=== PATIENT | female | born 1950 ===

== ENCOUNTER 2018-02-02 21:05 | Emergency (ER) | payer MEDICARE, OTHER ==
[2018-02-02 21:26] VITALS: BMI 36.2
[2018-02-02 21:28] VITALS: RESP 18
--- NOTE | 2018-02-02 22:52 | ED PDOC ---
HPI: General Adult Time Seen by Provider: 02/02/18 21:57 Chief Complaint (Nursing): Flu-like Symptoms Chief Complaint (Provider): Cough, feverish x 2 days History Per: Patient History/Exam Limitations: no limitations Onset/Duration Of Symptoms: Days Have you had recent travel within the past 21 days to any of the following countries: [place], [place], [place] or [place]?: No Current Symptoms Are (Timing): Still Present Additional Complaint(s): 67 yo female with HTN presents with cough and feeling feverish for 2 days. Pt states she has taken theraflu but it is not helping. Pt reports central chest pain, only when coughing. PT didn't take temperature at home. Pt reports taking 1 amoxicillin yesterday from her country. Past Medical History Reviewed: Historical Data, Nursing Documentation, Vital Signs Vital Signs: Last Vital Signs Temp 100.1 F H 02/02/18 21:26 Pulse 80 02/02/18 21:26 Resp 18 02/02/18 21:26 BP 163/84 H 02/02/18 21:26 Pulse Ox 97 02/02/18 23:24 - Medical History PMH: HTN Denies: Chronic Kidney Disease - Surgical History Surgical History: Hernia Repair (abdominal) - Family History Family History: States: Unknown Family Hx - Living Arrangements Living Arrangements: With Family - Social History Current smoker - smoking cessation education provided: No Alcohol: None Drugs: Denies - Home Medications Home Medications: Ambulatory Orders Medication Instructions Recorded Azithromycin [Zithromax] 250 mg PO DAILY #6 tab 02/02/18 - Allergies Allergies/Adverse Reactions: Allergies Allergy/AdvReac Type Severity Reaction Status Date / Time No Known Allergies Allergy Verified 02/02/18 21:26 Review of Systems ROS Statement: Except As Marked, All Systems Reviewed And Found Negative Constitutional: Positive for: Fever, Chills Respiratory: Positive for: Cough Physical Exam - Reviewed Nursing Documentation Reviewed: Yes Vital Signs Reviewed: Yes - Physical Exam Appears: Positive for: Well, Non-toxic, No Acute Distress Head Exam: Positive for: ATRAUMATIC, NORMAL INSPECTION, NORMOCEPHALIC Skin: Positive for: Normal Color, Warm, DRY Eye Exam: Positive for: Normal appearance ENT: Positive for: Normal ENT Inspection Neck: Positive for: Normal, Painless ROM Cardiovascular/Chest: Positive for: Regular Rate, Rhythm Respiratory: Positive for: Normal Breath Sounds. Negative for: Accessory Muscle Use, Respiratory Distress Back: Positive for: Normal Inspection Extremity: Positive for: Normal ROM Neurologic/Psych: Positive for: Alert, Oriented - Laboratory Results Result Diagrams: 02/02/18 23:09 02/02/18 23:09 - ECG O2 Sat by Pulse Oximetry: 97 Medical Decision Making Medical Decision Making: Labs normal. Disposition - Clinical Impression Clinical Impression: Bronchitis - Patient ED Disposition Is Patient to be Admitted: No Counseled Patient/Family Regarding: Diagnosis, Need For Followup, Rx Given - Disposition Disposition: Routine/Home Disposition Time: 23:52 Condition: STABLE Prescriptions: Azithromycin [Zithromax] 250 mg PO DAILY #6 tab Instructions: Acute Bronchitis Forms: [facility] (Uzbek)
[2018-02-02 23:14] LABS: BASO % 0.7 % (0.0-2.0); EOS # 0.1 K/uL (0.0-0.7); EOS % 3.2 % (0.0-4.0); HEMOGLOBIN 12.6 g/dL (12.0-16.0); LYMPH % 27.3 % (20.0-40.0); MEAN CELL VOLUME 88.4 fl (81.0-99.0); MEAN CORPUSCULAR HEMOGLOBIN 29.7 pg (27.0-31.0); MEAN CORPUSCULAR HGB CONC 33.6 g/dL (33.0-37.0); MEAN PLATELET VOLUME 8.9 fl (7.2-11.7); MONO # 0.5 K/uL (0.0-0.8); MONO % 14.5 % (0.0-10.0); NEUT % 54.3 % (50.0-75.0); NRBC % 0.1 % (0.0-0.0); RBC 4.24 Mil/uL (3.80-5.20); RED CELL DISTRIBUTION WIDTH 13.4 % (11.5-14.5); WHITE BLOOD COUNT 3.6 K/uL (4.8-10.8)
[2018-02-02 23:27] LABS: ALB/GLOB RATIO 1.1 (1.0-2.1); ALBUMIN 4.1 g/dL (3.5-5.0); ALT/SGPT 183 U/L (9-52); AST/SGOT 201 U/L (14-36); BLOOD UREA NITROGEN 16 mg/dl (7-17); CALCIUM 9.1 mg/dL (8.4-10.2); GFR AFRICAN-AMERICAN > 60; GFR NON-AFRICAN AMERICAN > 60; URINE BACTERIA RARE (<OCC); URINE BILIRUBIN NEGATIVE (NEGATIVE); URINE BLOOD MODERATE (NEGATIVE); URINE CLARITY CLEAR (Clear); URINE COLOR YELLOW (YELLOW); URINE GLUCOSE (UA) NEG (Normal); URINE LEUKOCYTE ESTERASE MOD Leu/uL (Negative); URINE PROTEIN NEGATIVE (NEGATIVE); URINE UROBILINOGEN 0.2-1.0 mg/dL (0.2-1.0)
[2018-02-03 00:06] VITALS: BP 142/73; PULSE 78; TEMP 99.7; O2SAT 100
--- NOTE | 2018-02-03 09:49 | RAD ---
HISTORY: pneumonia COMPARISON: Chest radiograph dated 05/28/2015. TECHNIQUE: Chest PA and lateral FINDINGS: LUNGS: No active pulmonary disease. PLEURA: No significant pleural effusion identified. No pneumothorax apparent. CARDIOVASCULAR: Atherosclerotic aortic calcifications. Cardiomediastinal silhouette within normal limits. OSSEOUS STRUCTURES: Unchanged. VISUALIZED UPPER ABDOMEN: Normal. OTHER FINDINGS: None. IMPRESSION: No active disease.
--- NOTE | 2018-02-03 10:18 | CARD ---
APPROVED REPORT EKG Measurement Heart [id number] <Conclusion> Normal sinus rhythm Right bundle branch block Abnormal ECG
== END 2018-02-03 00:08 | disposition home or self-care (01) ==
LOC: H.ER 21:05
DX: J40 Bronchitis, not specified as acute or chronic (principal); I10 Essential (primary) hypertension

== ENCOUNTER 2018-06-14 11:56 | Emergency (ER) | payer MEDICARE, OTHER ==
[2018-06-14 11:56] VITALS: BMI 36.2
[2018-06-14 12:01] VITALS: TEMP 98.2; O2SAT 97
--- NOTE | 2018-06-14 13:30 | RAD ---
Date of service: 06/14/2018 HISTORY: cough COMPARISON: Chest radiographs 02/02/2018. TECHNIQUE: Chest PA and lateral FINDINGS: LUNGS: No active pulmonary disease. PLEURA: No significant pleural effusion identified. No pneumothorax apparent. CARDIOVASCULAR: Normal. OSSEOUS STRUCTURES: No significant abnormalities. VISUALIZED UPPER ABDOMEN: Elevated right hemidiaphragm reiterated. OTHER FINDINGS: None. IMPRESSION: No interval acute cardiopulmonary disease appreciated.
--- NOTE | 2018-06-14 14:24 | ED PDOC ---
HPI: Abdomen Time Seen by Provider: 06/14/18 12:44 Chief Complaint (Nursing): Abdominal Pain Chief Complaint (Provider): Abdominal Pain History Per: Patient History/Exam Limitations: no limitations Onset/Duration Of Symptoms: Days Current Symptoms Are (Timing): Still Present Location Of Pain/Discomfort: Suprapubic Additional Complaint(s): 68 y/o female with no significant PMHx presents to the ED for evaluation of abdominal pain and back pain, onset earlier today. Patient also complains of dysuria and dry cough, onset 4 days ago. Otherwise, patient denies fever, chest pain and shortness of breath. PMD: Dr. Patel Past Medical History Reviewed: Historical Data, Nursing Documentation, Vital Signs Vital Signs: Last Vital Signs Temp 98.2 F 06/14/18 12:00 Pulse 66 06/14/18 12:00 Resp 20 06/14/18 12:00 BP 165/84 H 06/14/18 12:00 Pulse Ox 97 06/14/18 12:00 - Medical History PMH: HTN Denies: Chronic Kidney Disease - Surgical History Surgical History: Hernia Repair (abdominal) - Family History Family History: States: Unknown Family Hx - Home Medications Home Medications: Ambulatory Orders Medication Instructions Recorded levoFLOXacin [Levaquin] 500 mg PO DAILY #7 tab 02/02/18 Ciprofloxacin HCl [Cipro] 500 mg PO BID #14 tablet 06/14/18 - Allergies Allergies/Adverse Reactions: Allergies Allergy/AdvReac Type Severity Reaction Status Date / Time No Known Allergies Allergy Verified 06/14/18 11:59 Review of Systems ROS Statement: Except As Marked, All Systems Reviewed And Found Negative Constitutional: Negative for: Fever Cardiovascular: Negative for: Chest Pain Respiratory: Positive for: Cough (dry). Negative for: Shortness of Breath Gastrointestinal: Positive for: Abdominal Pain (suprapubic) Genitourinary Female: Positive for: Dysuria Musculoskeletal: Positive for: Back Pain Physical Exam - Reviewed Nursing Documentation Reviewed: Yes Vital Signs Reviewed: Yes - Physical Exam Appears: Positive for: No Acute Distress Head Exam: Positive for: ATRAUMATIC Skin: Positive for: Normal Color, Warm, Dry Eye Exam: Positive for: Normal appearance, EOMI, PERRL Neck: Positive for: Normal, Painless ROM Cardiovascular/Chest: Positive for: Regular Rate, Rhythm. Negative for: Murmur Respiratory: Positive for: Normal Breath Sounds. Negative for: Respiratory Distress Gastrointestinal/Abdominal: Positive for: Normal Exam, Soft, Tenderness (mild suprapubic ) Back: Positive for: Normal Inspection. Negative for: L CVA Tenderness, R CVA Tenderness, Vertebral Tenderness Extremity: Positive for: Normal ROM. Negative for: Pedal Edema, Deformity Neurologic/Psych: Positive for: Alert, Oriented. Negative for: Motor/Sensory Deficits - ECG O2 Sat by Pulse Oximetry: 97 (RA) Pulse Ox Interpretation: Normal Medical Decision Making Medical Decision Making: Time: 1324 Impression: Dysuria, abdominal pain, back pain and dry cough Differentials include but not limited to UTI, Kidney stones and bronchitis Rule Out pneumonia Plan: -- CT Abd/Pelvis w/o PO or IV Contrast -- ED Urine Dipstick -- CXR Two Views -- UDip showed hematuria and leuks. 1327 CXR FINDINGS: LUNGS: No active pulmonary disease. PLEURA: No significant pleural effusion identified. No pneumothorax apparent. CARDIOVASCULAR: Normal. OSSEOUS STRUCTURES: No significant abnormalities. VISUALIZED UPPER ABDOMEN: Elevated right hemidiaphragm reiterated. OTHER FINDINGS: None. IMPRESSION: No interval acute cardiopulmonary disease appreciated. 1453 CT ABDOMEN AND PELVIS FINDINGS: LOWER THORAX: The visualized lungs are clear. LIVER: Normal in size. Stable exophytic calcified cyst in the right hepatic lobe adjacent to the gallbladder fossa. No intrahepatic ductal dilatation. GALLBLADDER AND BILE DUCTS: No calcified gallstones. No biliary dilatation PANCREAS: Normal in size. No ductal dilatation. SPLEEN: Normal in size. ADRENALS: Normal in size. No discrete nodule. KIDNEYS AND URETERS: Normal in size without nephrolithiasis. Mild fullness in bilateral renal collecting systems.. VASCULATURE: No aortic aneurysm. BOWEL: The small bowel loops are normal in caliber. There is moderate amount of stool in the colon. No bowel dilatation or wall thickening. No bowel obstruction. There is left colonic diverticulosis without CT evidence for acute diverticulitis APPENDIX: Normal appendix. PERITONEUM: No free fluid. No free air. LYMPH NODES: No enlarged lymph nodes. BLADDER: Well distended and grossly normal in appearance. REPRODUCTIVE: The uterus is normal in size. There is a stable 4.2 x 4.9 cm cystic mass in the right adnexa. BONES: No acute fracture. OTHER FINDINGS: There is a small supraumbilical ventral hernia containing nonobstructed small bowel loops. IMPRESSION: No acute abdominal or pelvic abnormality. Left colonic diverticulosis without CT evidence for acute diverticulitis. Little interval change in 4.2 x 4.9 cm in the right adnexa. Supraumbilical ventral hernia containing nonobstructed small bowel lobes. Scribe Attestation: Documented by Osito Quintana, acting as a scribe for Petra Ponce MD. Provider Scribe Attestation: All medical record entries made by the Scribe were at my direction and personally dictated by me. I have reviewed the chart and agree that the record accurately reflects my personal performance of the history, physical exam, medical decision making, and the department course for this patient. I have also personally directed, reviewed, and agree with the discharge instructions and disposition. Disposition - Clinical Impression Clinical Impression: UTI (urinary tract infection), Ventral hernia - Disposition Referrals: [facility] [Outside] Condition: GOOD Additional Instructions: ANNA AVILES, thank you for letting us take care of you today. Your provider was Petra Ponce MD and you were treated for BACK PAIN. The emergency medical care you received today was directed at your acute symptoms. If you were prescribed any medication, please fill it and take as directed. It may take several days for your symptoms to resolve. Return to the Emergency Department if your symptoms worsen, do not improve, or if you have any other problems. Please contact your doctor or call one of the physicians/clinics you have been referred to that are listed on the Patient Visit Information form that is included in your discharge packet. Bring any paperwork you were given at discharge with you along with any medications you are taking to your follow up visit. Our treatment cannot replace ongoing medical care by a primary care provider outside of the emergency department. Thank you for allowing the [facility] team to be part of your care today. If you had an X-Ray or CT scan: A Radiologist will review the ED reading if any change in treatment is needed we will contact you. If you had a blood, urine, or wound culture: It will take several days for the results, if any change in treatment is needed we will contact you. If you had an STI test: It will take 48 hours for the results. Please call after 1 week if you have not heard back. Prescriptions: Ciprofloxacin HCl [Cipro] 500 mg PO BID #14 tablet Instructions: Urinary Tract Infection, Adult (DC), Abdominal Hernia (DC) Print Language: CHINESE
--- NOTE | 2018-06-14 14:57 | CT ---
Date of service: 06/14/2018 PROCEDURE: CT Abdomen and Pelvis without intravenous contrast HISTORY: back pain hematuria COMPARISON: 08/11/2016. TECHNIQUE: CT scan of the abdomen and pelvis was performed without administration of intravenous contrast. Oral contrast was not administered. Coronal and sagittal reformatted images were obtained. . Radiation dose: Total exam DLP = 816.90 mGy-cm. This CT exam was performed using one or more of the following dose reduction techniques: Automated exposure control, adjustment of the mA and/or kV according to patient size, and/or use of iterative reconstruction technique. FINDINGS: LOWER THORAX: The visualized lungs are clear. LIVER: Normal in size. Stable exophytic calcified cyst in the right hepatic lobe adjacent to the gallbladder fossa. No intrahepatic ductal dilatation. GALLBLADDER AND BILE DUCTS: No calcified gallstones. No biliary dilatation PANCREAS: Normal in size. No ductal dilatation. SPLEEN: Normal in size. ADRENALS: Normal in size. No discrete nodule. KIDNEYS AND URETERS: Normal in size without nephrolithiasis. Mild fullness in bilateral renal collecting systems.. VASCULATURE: No aortic aneurysm. BOWEL: The small bowel loops are normal in caliber. There is moderate amount of stool in the colon. No bowel dilatation or wall thickening. No bowel obstruction. There is left colonic diverticulosis without CT evidence for acute diverticulitis APPENDIX: Normal appendix. PERITONEUM: No free fluid. No free air. LYMPH NODES: No enlarged lymph nodes. BLADDER: Well distended and grossly normal in appearance. REPRODUCTIVE: The uterus is normal in size. There is a stable 4.2 x 4.9 cm cystic mass in the right adnexa. BONES: No acute fracture. OTHER FINDINGS: There is a small supraumbilical ventral hernia containing nonobstructed small bowel loops. IMPRESSION: No acute abdominal or pelvic abnormality. Left colonic diverticulosis without CT evidence for acute diverticulitis. Little interval change in 4.2 x 4.9 cm in the right adnexa. Supraumbilical ventral hernia containing nonobstructed small bowel lobes.
[2018-06-14 16:00] VITALS: BP 141/91; PULSE 68; RESP 18
== END 2018-06-14 15:35 | disposition home or self-care (01) ==
LOC: H.ER 11:56
DX: N39.0 Urinary tract infection, site not specified (principal); K43.9 Ventral hernia without obstruction or gangrene; I10 Essential (primary) hypertension

== ENCOUNTER 2018-12-25 20:10 | Observation (INO) | payer MEDICARE, OTHER ==
--- NOTE | 2018-12-25 22:51 | ED PDOC ---
HPI: Abdomen Time Seen by Provider: 12/25/18 22:19 Chief Complaint (Nursing): Abdominal Pain Chief Complaint (Provider): Abdominal Pain History Per: Patient History/Exam Limitations: no limitations Onset/Duration Of Symptoms: Days Current Symptoms Are (Timing): Still Present Additional Complaint(s): 68 y/o female with a PMHx of a hysterectomy, abdominal hernia repair, HTN and recurrent intestinal obstructions presents to the ED for evaluation of abdominal pain since earlier today associated with three episodes of non-bloody, non-bilious vomiting this evening. Otherwise, patient denies diarrhea, fever, cough, shortness of breath and chest pain. PMD: William Fuentes Past Medical History Reviewed: Historical Data, Nursing Documentation, Vital Signs Vital Signs: Last Vital Signs Temp 98.3 F 12/25/18 20:43 Pulse 85 12/25/18 20:43 Resp 16 12/25/18 20:43 BP 178/101 H 12/25/18 20:43 Pulse Ox 100 12/25/18 20:43 - Medical History PMH: HTN Denies: Chronic Kidney Disease Other PMH: recurrent intestinal obstructions - Surgical History Surgical History: Hernia Repair (abdominal) Other surgeries: hysterectomy - Family History Family History: States: Unknown Family Hx - Social History Current smoker - smoking cessation education provided: No Alcohol: None Drugs: Denies - Home Medications Home Medications: Ambulatory Orders Medication Instructions Recorded levoFLOXacin [Levaquin] 500 mg PO DAILY #7 tab 02/02/18 Ciprofloxacin HCl [Cipro] 500 mg PO BID #14 tablet 06/14/18 - Allergies Allergies/Adverse Reactions: Allergies Allergy/AdvReac Type Severity Reaction Status Date / Time No Known Allergies Allergy Verified 12/25/18 20:42 Review of Systems ROS Statement: Except As Marked, All Systems Reviewed And Found Negative Constitutional: Negative for: Fever Cardiovascular: Negative for: Chest Pain Respiratory: Negative for: Cough, Shortness of Breath Gastrointestinal: Positive for: Vomiting, Abdominal Pain. Negative for: Diar linda Physical Exam - Reviewed Nursing Documentation Reviewed: Yes Vital Signs Reviewed: Yes - Physical Exam Appears: Positive for: No Acute Distress Head Exam: Positive for: ATRAUMATIC, NORMOCEPHALIC Skin: Positive for: Normal Color, Warm, Dry Eye Exam: Positive for: Normal appearance, EOMI, PERRL Neck: Positive for: Normal, Painless ROM, Supple Cardiovascular/Chest: Positive for: Regular Rate, Rhythm. Negative for: Murmur Respiratory: Positive for: Normal Breath Sounds. Negative for: Respiratory Distress Gastrointestinal/Abdominal: Positive for: Tenderness (diffuse). Negative for: Mass, Guarding, Rebound Extremity: Positive for: Normal ROM. Negative for: Deformity Neurological/Psych: Positive for: Awake, Alert, Oriented (x3). Negative for: Motor/Sensory Deficits - Laboratory Results Result Diagrams: 12/25/18 23:38 12/25/18 23:38 - ECG O2 Sat by Pulse Oximetry: 100 (RA) Pulse Ox Interpretation: Normal Medical Decision Making Medical Decision Making: Time: 22:43 Impression: 68 y/o male presenting with abdominal pain and vomiting, in setting of recurrent small bowl obstructions Plan: -- CT Abd/Pelvis IV Contrast ONLY -- EKG -- CMP -- Lact Acid, Plasma -- Lipase -- ED Urine Dipstick -- CBC with Differentials -- Pepcid 20 mg IV -- Zofran Inj 4 mg IV -- Heplock Insertion -- Urinalysis 1:21 CT Abdomen and pelvis with IV contrast only read and reviewed by radiologist COMMENTS: Bilateral basilar subsegmental atelectatic pulmonary changes. 1.4 cm benign chronic peripheral uncomplicated cyst in the segment 4B of the liver with mural calcifications. Small sliding hiatal hernia. Perimbilical non incarcerated anterior abdominal wall hernia. Moderate partial small bowel obstruction. Transition zone in the right lower quadrant. No evidence of bowel perforation or pneumatosis intestinalis. Prior hysterectomy. 4.1 cm right ovarian/adnexal cyst. The liver is of uniform attenuation without mass or defect. There is no intra or extrahepatic biliary ductal dilatation. The spleen is normal. The gallbladder is within normal limits. The pancreas is of normal contour and attenuation characteristics. There is no evidence of adrenal mass. Both kidneys demonstrate prompt and equal nephrograms. The kidneys are normal in size, shape and configuration. There is no evidence of renal or ureteral mass. No renal or ureteral calculi are identified. There is no hydroureter or hydronephrosis. No evidence for appendicitis. There is no evidence of abdominal ascites or lymphadenopathy. There is no evidence of intrinsic or extrinsic bladder mass. There is no pelvic ascites or lymphadenopathy. Images of the lung bases show no evidence of pleural or parenchymal mass. There are no pleural effusions. The bony structures are free of lytic or blastic lesions. IMPRESSION: Bilateral basilar subsegmental atelectatic pulmonary changes. 1.4 cm benign chronic peripheral uncomplicated cyst in the segment 4B of the liver with mural calcifications. Small sliding hiatal hernia. Perimbilical non incarcerated anterior abdominal wall hernia. Moderate partial small bowel obstruction. Transition zone in the right lower quadrant. No evidence of bowel perforation or pneumatosis intestinalis. Prior hysterectomy. 4.1 cm right ovarian/adnexal cyst. 2:00 Case discussed with William Fuentes MD (patient's PMD). Patient to be admitted for small bowel obstruction. requesting Jaya Herrera MD as surgical consult. Spoke with plant operations vice president . Discussed case with Dr.J Herrera. 2:30 Callback from requesting patient be admitted under medical service as he is away and will not be back.' Case referred to Manpreet Martínez (BONDING MACHINE TENDER for ) Scribe Attestation: Documented by Osito Quintana, acting as a scribe Cristine Chowdhury MD. Provider Scribe Attestation: All medical record entries made by the Scribe were at my direction and personally dictated by me. I have reviewed the chart and agree that the record accurately reflects my personal performance of the history, physical exam, medical decision making, and the department course for this patient. I have also personally directed, reviewed, and agree with the discharge instructions and disposition. Documented by Christine Courtney, acting as a scribe Cristine Chowdhury MD. Provider Scribe Attestation: All medical record entries made by the Scribe were at my direction and personally dictated by me. I have reviewed the chart and agree that the record accurately reflects my personal performance of the history, physical exam, medical decision making, and the department course for this patient. I have also personally directed, reviewed, and agree with the discharge instructions and disposition. Disposition - Clinical Impression Clinical Impression: Small bowel obstruction - Disposition Disposition Time: 02:00 Condition: FAIR - Pt Status Changed To: Hospital Disposition Of: Inpatient - Admit Certification Admit to Inpatient:: After my assessment, the patient will require hospitalization for at least two midnights. This is because of the severity of symptoms shown, intensity of services needed, and/or the medical risk in this patient being treated as an outpatient.
[2018-12-25 23:46] LABS: BASO % 0.5 % (0.0-2.0); EOS # 0.1 K/uL (0.0-0.7); HEMOGLOBIN 14.1 g/dL (12.0-16.0); LYMPH # 1.9 K/uL (1.0-4.3); LYMPH % 31.1 % (20.0-40.0); MEAN CELL VOLUME 90.1 fl (81.0-99.0); MEAN CORPUSCULAR HEMOGLOBIN 30.1 pg (27.0-31.0); MEAN CORPUSCULAR HGB CONC 33.4 g/dL (33.0-37.0); MEAN PLATELET VOLUME 9.3 fl (7.2-11.7); MONO # 0.4 K/uL (0.0-0.8); MONO % 6.2 % (0.0-10.0); NEUT # 3.8 K/uL (1.8-7.0); NEUT % 60.2 % (50.0-75.0); RBC 4.67 Mil/uL (3.80-5.20); RED CELL DISTRIBUTION WIDTH 14.6 % (11.5-14.5); WHITE BLOOD COUNT 6.3 K/uL (4.8-10.8)
[2018-12-25 23:55] LABS: ALB/GLOB RATIO 1.2 (1.0-2.1); ALBUMIN 4.7 g/dL (3.5-5.0); ALT/SGPT 74 U/L (9-52); AST/SGOT 48 U/L (14-36); BLOOD UREA NITROGEN 17 mg/dl (7-17); CALCIUM 9.6 mg/dL (8.4-10.2); GFR NON-AFRICAN AMERICAN > 60; LIPASE 101 U/L (23-300)
[2018-12-26] MEDS ORDERED: Iohexol 300 100 ML IJ ONE (00:35)
[2018-12-26] MEDS ORDERED: Sodium Chloride 0.9% 50 ML IV ONE (00:36)
[2018-12-26 04:48] VITALS: BMI 35.4
--- NOTE | 2018-12-26 06:12 | CP.PCM.CON ---
<Nico Posada - Last Filed: 12/26/18 06:17> History of Present Illness - History of Present Illness History of Present Illness: Surgery: Dr. Herrera Reason for consult: SBO HPI: Patient is a 68 y/o female who presented today complaining of abdominal discomfort, nausea, and 5 episodes of nonbloody bilious vomiting that started about 12 hour prior to arrival. She describes the discomfort as a cramping sensation mainly located in the epigastrium. She states that her last BM and flatus was early Tuesday morning and reported as normal. Since then she denies having flatus or BM. She report having similar symptoms in the past in which she was told she had an obstruction from her prior operations. She said the symptoms usually resolve in 2-3 days without an NGT. She denies sick contact or recent travel. Her last colonoscopy was 2 years ago and reported as normal. PMH: HTN, SBO PSH: open hysterectomy, incisional hernia repair 7+ years ago Social: denies etoh, tobacco or drug use. Review of Systems - Constitutional Constitutional: absent: Anorexia, Chills, Fever - EENT Eyes: absent: Blurred Vision, Change in Vision Ears: absent: Disequilibrium, Dizziness Nose/Mouth/Throat: absent: Sore Throat, Neck Pain - Cardiovascular Cardiovascular: absent: Chest Pain, Dyspnea - Respiratory Respiratory: absent: Cough, Wheezing - Gastrointestinal Gastrointestinal: Abdominal Pain, Nausea, Vomiting. absent: Constipation, Cramping, Diarrhea - Genitourinary Genitourinary: absent: Hematuria, Pyuria - Musculoskeletal Musculoskeletal: absent: Tingling - Integumentary Integumentary: absent: Jaundice - Neurological Neurological: absent: Dizziness - Psychiatric Psychiatric: absent: Confusion, Depression Past Patient History - Infectious Disease Hx of Infectious Diseases: None - Past Medical History & Family History Past Medical History?: Yes - Past Social History Smoking Status: Never Smoked - CARDIAC Hx Cardiac Disorders: Yes Hx Hypercholesterolemia: No Hx Hypertension: Yes - PULMONARY Hx Respiratory Disorders: No - NEUROLOGICAL Hx Neurological Disorder: No - HEENT Hx HEENT Problems: Yes Other/Comment: use eyeglasses - RENAL Hx Chronic Kidney Disease: No - ENDOCRINE/METABOLIC Hx Endocrine Disorders: No Hx Diabetes Mellitus Type 2: No - HEMATOLOGICAL/ONCOLOGICAL Hx Blood Disorders: No Hx AIDS: No Hx Human Immunodeficiency Virus (HIV): No - INTEGUMENTARY Hx Dermatological Problems: No - MUSCULOSKELETAL/RHEUMATOLOGICAL Hx Musculoskeletal Disorders: No Hx Falls: No - GASTROINTESTINAL Hx Gastrointestinal Disorders: Yes Other/Comment: Intestinal obstruction/SBO 3 yrs ago - GENITOURINARY/GYNECOLOGICAL Hx Genitourinary Disorders: No - PSYCHIATRIC Hx Psychophysiologic Disorder: No Hx Substance Use: No (denies hx) - SURGICAL HISTORY Hx Surgeries: Yes Hx Hysterectomy: Yes (11 years ago) Other/Comment: Incisional hernia repair 6 yrs ago, Total abdominal hysterectomy and b/l salphingo-oophorectomy 11 yrs ago - ANESTHESIA Hx Anesthesia: Yes Hx Anesthesia Reactions: No Hx Malignant Hyperthermia: No Meds Allergies/Adverse Reactions: Allergies Allergy/AdvReac Type Severity Reaction Status Date / Time No Known Allergies Allergy Verified 12/25/18 20:42 Physical Exam - Constitutional Appears: Non-toxic, No Acute Distress - Head Exam Head Exam: ATRAUMATIC, NORMOCEPHALIC - Eye Exam Eye Exam: Normal appearance - ENT Exam ENT Exam: Mucous Membranes Moist - Respiratory Exam Respiratory Exam: NORMAL BREATHING PATTERN. absent: Respiratory Distress - Cardiovascular Exam Cardiovascular Exam: REGULAR RHYTHM. absent: Tachycardia - GI/Abdominal Exam GI & Abdominal Exam: Soft. absent: Distended, Guarding, Rebound, Rigid, Tenderness Additional comments: well healed infraumbilical midline vertical scar - Extremities Exam Extremities exam: Positive for: normal inspection. Negative for: calf tenderness - Neurological Exam Neurological exam: Alert, Oriented x3 - Psychiatric Exam Psychiatric exam: Normal Affect, Normal Mood - Skin Skin Exam: Dry, Normal Color, Warm Results - Vital Signs Recent Vital Signs: Last Vital Signs Temp 97.7 F 12/26/18 03:36 Pulse 56 L 12/26/18 03:36 Resp 18 12/26/18 03:36 BP 149/85 12/26/18 03:36 Pulse Ox 95 12/26/18 03:36 - Labs Result Diagrams: 12/25/18 23:38 12/25/18 23:38 Labs: Laboratory Results - last 24 hr 12/25/18 12/25/18 12/25/18 23:32 23:38 23:38 WBC 6.3 D RBC 4.67 Hgb 14.1 Hct 42.1 MCV 90.1 MCH 30.1 MCHC 33.4 RDW 14.6 H Plt Count 309 MPV 9.3 Neut % (Auto) 60.2 Lymph % (Auto) 31.1 [place] % (Auto) 6.2 Eos % (Auto) 2.0 Baso % (Auto) 0.5 Neut # (Auto) 3.8 Lymph # (Auto) 1.9 [place] # (Auto) 0.4 Eos # (Auto) 0.1 Baso # (Auto) 0.0 Sodium 139 Potassium 3.9 Chloride 100 Carbon Dioxide 28 Anion Gap 15 BUN 17 Creatinine 0.8 Est GFR ( Amer) > 60 Est GFR (Non-Af Amer) > 60 Random Glucose 115 H Lactic Acid 1.3 Calcium 9.6 Total Bilirubin 0.7 AST 48 H D ALT 74 H D Alkaline Phosphatase 173 H Total Protein 8.6 H Albumin 4.7 Globulin 3.9 Albumin/Globulin Ratio 1.2 Lipase 101 - Impressions Impression: CT with transition point in RLQ, fat containing recurrent umbilical hernia Assessment & Plan - Assessment and Plan (Free Text) Assessment: 68 y/o female w/ mechanical SBO Plan: -refused NGT, said she normally resolves without it -NPO -IVFs -zofran -maintain normal electrolyte levels -encourage ambulation -if failure to resolved may need surgical intervention -discussed with atteding Swapna PGY4 - Date & Time Date: 12/26/18 Time: 03:00 <Efrain Murguia - Last Filed: 12/26/18 17:27> History of Present Illness - History of Present Illness History of Present Illness: Patient was seen and examined at the bedside. Agree with resident's note above. Patient states that feels much better and passing flatus today, no more nausea or vomiting. Meds - Medications Medications: Current Medications Famotidine (Pepcid) 20 mg IVP DAILY [facility] Last Admin: 12/26/18 10:49 Dose: 20 mg Hydromorphone HCl (Dilaudid) 0.5 mg IVP Q4 PRN PRN Reason: Pain, moderate (4-7) Stop: 12/28/18 06:23 Lactated Ringer's (Lactated Ringer's) 1,000 mls @ 100 mls/hr IV .Q10H [facility] Last Admin: 12/26/18 17:11 Dose: 100 mls/hr Ondansetron HCl (Zofran Inj) 4 mg IVP Q4 PRN PRN Reason: Nausea/Vomiting Physical Exam - GI/Abdominal Exam Additional comments: soft, NT, ND, BS+, no rebound, no guarding, well healed scars from prior surgeries Results - Vital Signs Recent Vital Signs: Last Vital Signs Temp 97.5 F L 12/26/18 16:09 Pulse 48 L 12/26/18 16:09 Resp 18 12/26/18 16:09 BP 132/68 12/26/18 16:09 Pulse Ox 97 12/26/18 16:09 - Labs Result Diagrams: 12/25/18 23:38 12/25/18 23:38 Labs: Laboratory Results - last 24 hr 12/25/18 12/25/18 12/25/18 23:32 23:38 23:38 WBC 6.3 D RBC 4.67 Hgb 14.1 Hct 42.1 MCV 90.1 MCH 30.1 MCHC 33.4 RDW 14.6 H Plt Count 309 MPV 9.3 Neut % (Auto) 60.2 Lymph % (Auto) 31.1 [place] % (Auto) 6.2 Eos % (Auto) 2.0 Baso % (Auto) 0.5 Neut # (Auto) 3.8 Lymph # (Auto) 1.9 [place] # (Auto) 0.4 Eos # (Auto) 0.1 Baso # (Auto) 0.0 Sodium 139 Potassium 3.9 Chloride 100 Carbon Dioxide 28 Anion Gap 15 BUN 17 Creatinine 0.8 Est GFR ( Amer) > 60 Est GFR (Non-Af Amer) > 60 Random Glucose 115 H Lactic Acid 1.3 Calcium 9.6 Total Bilirubin 0.7 AST 48 H D ALT 74 H D Alkaline Phosphatase 173 H Total Protein 8.6 H Albumin 4.7 Globulin 3.9 Albumin/Globulin Ratio 1.2 Lipase 101 - Imaging and Cardiology CT scan - abdomen Status: Image reviewed by me, Report reviewed by me Assessment & Plan - Assessment and Plan (Free Text) Plan: - Start clear liquid diet - Repeat labs in am - Out of bed - DVT ppx - Will follow
[2018-12-26] MEDS ORDERED: HYDROmorphone 0.5 mg/0.5 ml ISec IVP PRN (06:23)
[2018-12-26] MEDS: Lactated Ringer's 1,000 ML IV SCH ×2 (06:24→17:11)
--- NOTE | 2018-12-26 10:03 | CARD ---
APPROVED REPORT Date of service: 12/26/2018 EKG Measurement Heart [id number] DC [id number] <Conclusion> Sinus bradycardia Right bundle branch block Abnormal ECG
--- NOTE | 2018-12-26 12:26 | CT ---
Date of service: 12/26/2018 PROCEDURE: CT Abdomen and Pelvis with contrast HISTORY: abd pain hx obstruction COMPARISON: 05/30/2015. Pelvic ultrasound documenting 4 cm right adnexal cyst. 08/11/2016, 06/14/[address] scans. The 4 cm right adnexal cyst is documented. TECHNIQUE: Intravenous contrast dose: 95 cc Omnipaque 300. Radiation dose: Total exam DLP = <inf_radiation_dlp> mGy-cm. This CT exam was performed using one or more of the following dose reduction techniques: Automated exposure control, adjustment of the mA and/or kV according to patient size, and/or use of iterative reconstruction technique. FINDINGS: LOWER THORAX: Unremarkable. LIVER: Hepatic steatosis. No focal masses. No intrahepatic bile duct dilatation or perihepatic ascites. Incidental 2 cm calcified cyst right hepatic lobe adjacent to the gallbladder. GALLBLADDER AND BILE DUCTS: Unremarkable. PANCREAS: Unremarkable. No gross lesion or ductal dilatation. SPLEEN: Unremarkable. ADRENALS: Unremarkable. No mass. KIDNEYS AND URETERS: Unremarkable. No hydronephrosis. No solid mass. VASCULATURE: Unremarkable. No aortic aneurysm. No atherosclerotic calcification or mural plaque present. BOWEL: Disproportionate dilatation of small bowel proximal to the right lower quadrant. The terminal ileum, ileocecal valve region and cecum are normal. APPENDIX: A normal appendix is visualized in it's entirety. PERITONEUM: Trace fluid interposed between the diaphragm and the right hepatic lobe. No free air. LYMPH NODES: Unremarkable. No enlarged lymph nodes. BLADDER: Unremarkable. REPRODUCTIVE: Redemonstration of right adnexal cyst 4.2 x 4.6 cm. Prior hysterectomy. BONES: No acute fracture. OTHER FINDINGS: Periumbilical hernia containing fat only. There diastasis of the rectus muscle at this level, small bowel however is not noted within the hernia. Similar findings identified on prior CT scans. IMPRESSION: Early/incomplete distal small bowel obstruction. Stable right adnexal cyst. Additional benign and/or incidental findings described above. Concordant results (preliminary interpretation) provided by [employer]. Procedure Completed: 01:04. Preliminary Report: Interpreted and electronically signed: 01:21. Final Interpretation: 12:22.
[2018-12-27 00:32] VITALS: RESP 19; TEMP 97.6; O2SAT 96
--- NOTE | 2018-12-27 01:53 | CP.PCM.HP ---
History of Present Illness - History of Present Illness History of Present Illness: CC: Abdominal pain and several vomiting episodes. HPI: 68 y/o female with a h/o HTN and recurrent intestinal obstructions presented to the ED with diffuse abdominal pain, as well as several episodes of non-blood vomiting. CT A/P revealed early/incomplete distal small bowel obstruction. Surgery was consulted. At this time, the pt is able to pass gas freely. PMH: HTN, Recurrent intestinal obstructions. PSH: Abdominal hernia repair and hysterectomy. Allergies: NKDA. Subjective Review of Systems: Reviewed and no additional remarkable complaints except dif fuse abdominal pain. Objective Appears: Anxious, Non-toxic, No Acute Distress. Head Exam: NORMAL INSPECTION, normocephalic. Eye Exam: Normal eye inspection, EOMI, PERRLA. Respiratory Exam: NORMAL BREATHING PATTERN, breath sounds clear bilaterally. Cardiovascular Exam: +S1, +S2. RRR. GI & Abdominal Exam: Diffuse abdominal tenderness. Neurological Exam: Alert, awake, oriented x3. Psychiatric exam: Normal mood. Calm and cooperative. Skin exam: Skin color normal, warm, dry. Assessment/Impression/Plan: 1.) Small bowel obstruction -CT A/P showed early/incomplete small bowel obstruction. -General surgery consult input appreciated. -Anti-emetics and PRN pain medication. -IVF hydration. Keep Pt NPO for now, consider advancing to liquids if tolerated. -Encouraged ambulation. -Continue current treatment. Present on Admission - Present on Admission Any Indicators Present on Admission: No Past Patient History - Infectious Disease Hx of Infectious Diseases: None - Past Medical History & Family History Past Medical History?: Yes - Past Social History Alcohol: None Drugs: Denies - CARDIAC Hx Hypertension: Yes - PULMONARY Hx Respiratory Disorders: No - NEUROLOGICAL Hx Neurological Disorder: No - HEENT Hx HEENT Problems: Yes Other/Comment: use eyeglasses - RENAL Hx Chronic Kidney Disease: No - ENDOCRINE/METABOLIC Hx Endocrine Disorders: No Hx Diabetes Mellitus Type 2: No - HEMATOLOGICAL/ONCOLOGICAL Hx Blood Disorders: No Hx AIDS: No Hx Human Immunodeficiency Virus (HIV): No - INTEGUMENTARY Hx Dermatological Problems: No - MUSCULOSKELETAL/RHEUMATOLOGICAL Hx Musculoskeletal Disorders: No Hx Falls: No - GASTROINTESTINAL Hx Gastrointestinal Disorders: Yes Other/Comment: Intestinal obstruction/SBO 3 yrs ago - GENITOURINARY/GYNECOLOGICAL Hx Genitourinary Disorders: No - PSYCHIATRIC Hx Psychophysiologic Disorder: No Hx Substance Use: No (denies hx) - SURGICAL HISTORY Hx Surgeries: Yes Hx Hysterectomy: Yes (11 years ago) Other/Comment: Incisional hernia repair 6 yrs ago, Total abdominal hysterectomy and b/l salphingo-oophorectomy 11 yrs ago - ANESTHESIA Hx Anesthesia: Yes Hx Anesthesia Reactions: No Hx Malignant Hyperthermia: No Meds Allergies/Adverse Reactions: Allergies Allergy/AdvReac Type Severity Reaction Status Date / Time No Known Allergies Allergy Verified 12/25/18 20:42 Results - Vital Signs Recent Vital Signs: Last Vital Signs Temp 97.6 F 12/27/18 00:31 Pulse 53 L 12/27/18 00:31 Resp 19 12/27/18 00:31 BP 132/62 12/27/18 00:31 Pulse Ox 96 12/27/18 00:31 - Labs Result Diagrams: 12/25/18 23:38 12/25/18 23:38 Assessment & Plan (1) SBO (small bowel obstruction) Status: Acute (2) Abdominal pain Status: Acute
[2018-12-27] MEDS: Lactated Ringer's 1,000 ML IV SCH (03:25)
[2018-12-27 06:58] LABS: BASO % 0.7 % (0.0-2.0); EOS # 0.2 K/uL (0.0-0.7); EOS % 5.1 % (0.0-4.0); HEMOGLOBIN 12.3 g/dL (12.0-16.0); LYMPH # 1.8 K/uL (1.0-4.3); LYMPH % 55.6 % (20.0-40.0); MEAN CELL VOLUME 90.2 fl (81.0-99.0); MEAN CORPUSCULAR HEMOGLOBIN 29.6 pg (27.0-31.0); MEAN CORPUSCULAR HGB CONC 32.8 g/dL (33.0-37.0); MEAN PLATELET VOLUME 9.8 fl (7.2-11.7); MONO # 0.4 K/uL (0.0-0.8); MONO % 11.1 % (0.0-10.0); NEUT # 0.9 K/uL (1.8-7.0); NEUT % 27.5 % (50.0-75.0); NRBC % 0.3 % (0.0-0.0); RBC 4.17 Mil/uL (3.80-5.20); RED CELL DISTRIBUTION WIDTH 14.1 % (11.5-14.5); WHITE BLOOD COUNT 3.3 K/uL (4.8-10.8)
[2018-12-27 07:04] LABS: ALB/GLOB RATIO 1.2 (1.0-2.1); ALBUMIN 3.5 g/dL (3.5-5.0); ALT/SGPT 51 U/L (9-52); AST/SGOT 28 U/L (14-36); BLOOD UREA NITROGEN 13 mg/dl (7-17); CALCIUM 8.6 mg/dL (8.4-10.2); GFR NON-AFRICAN AMERICAN > 60
[2018-12-27 08:56] VITALS: BP 148/81; PULSE 71
--- NOTE | 2018-12-27 10:52 | CP.PCM.PN ---
Subjective - Date & Time of Evaluation Date of Evaluation: 12/27/18 Time of Evaluation: 10:50 - Subjective Subjective: General Surgery Pt seen and examined this AM. She reports feeling much better today. She denies any N/V. She has been passing gas. She denies any BMs. She does have an achy abdominal pain when she presses down over her midline incision area, other donald feels well. Labs and vitals noted. PE Gen:Pt laying in bed in NAD Skin: warm and dry Cardio: s1s2 RRR Lungs: CTA bilaterally Abd: Soft NTND Extr: (+) left leg tender (as per pt this is her baseline) A/P Partial SBO Advance diet to solids today, if tolerates pt cleared for discharge from surgical perspective. D/C IVF Objective - Vital Signs/Intake and Output Vital Signs (last 24 hours): Temp Pulse Resp BP Pulse Ox 97.6 F 71 19 148/81 96 12/27/18 08:55 12/27/18 08:55 12/27/18 08:55 12/27/18 08:55 12/27/18 08:55 - Medications Medications: Current Medications Famotidine (Pepcid) 20 mg IVP DAILY [facility] Last Admin: 12/27/18 08:37 Dose: 20 mg Hydromorphone HCl (Dilaudid) 0.5 mg IVP Q4 PRN PRN Reason: Pain, moderate (4-7) Stop: 12/28/18 06:23 Ondansetron HCl (Zofran Inj) 4 mg IVP Q4 PRN PRN Reason: Nausea/Vomiting - Labs Labs: 12/27/18 04:34 12/27/18 04:34
--- NOTE | 2018-12-28 02:42 | CP.PCM.DIS ---
Provider - Provider Date of Admission: 12/26/18 02:05 Attending physician: Thomas Vanessa MD Consults: 12/26/18 02:11 Surgery [General Surgery Consult] Stat Comment: Consulting Provider: Jaya Herrera Consulting Physician: Jaya Herrera Reason for Consult: SBO 12/26/18 09:00 Social Work Referral Routine Comment: lives alone Physician Instructions: Reason For Exam: lives alone Time Spent in preparation of Discharge (in minutes): 30 Diagnosis - Discharge Diagnosis (1) SBO (small bowel obstruction) Status: Acute (2) Abdominal pain Status: Acute Hospital Course - Lab Results Lab Results: Most Recent Lab Values WBC 3.3 K/uL (4.8-10.8) L 12/27/18 04:34 RBC 4.17 Mil/uL (3.80-5.20) 12/27/18 04:34 Hgb 12.3 g/dL (12.0-16.0) 12/27/18 04:34 Hct 37.6 % (34.0-47.0) 12/27/18 04:34 MCV 90.2 fl (81.0-99.0) 12/27/18 04:34 MCH 29.6 pg (27.0-31.0) 12/27/18 04:34 MCHC 32.8 g/dL (33.0-37.0) L 12/27/18 04:34 RDW 14.1 % (11.5-14.5) 12/27/18 04:34 Plt Count 236 K/uL (130-400) 12/27/18 04:34 MPV 9.8 fl (7.2-11.7) 12/27/18 04:34 Neut % (Auto) 27.5 % (50.0-75.0) L 12/27/18 04:34 Lymph % (Auto) 55.6 % (20.0-40.0) H 12/27/18 04:34 [place] % (Auto) 11.1 % (0.0-10.0) H 12/27/18 04:34 Eos % (Auto) 5.1 % (0.0-4.0) H 12/27/18 04:34 Baso % (Auto) 0.7 % (0.0-2.0) 12/27/18 04:34 Neut # (Auto) 0.9 K/uL (1.8-7.0) L 12/27/18 04:34 Lymph # (Auto) 1.8 K/uL (1.0-4.3) 12/27/18 04:34 [place] # (Auto) 0.4 K/uL (0.0-0.8) 12/27/18 04:34 Eos # (Auto) 0.2 K/uL (0.0-0.7) 12/27/18 04:34 Baso # (Auto) 0.0 K/uL (0.0-0.2) 12/27/18 04:34 Sodium 138 mmol/l (132-148) 12/27/18 04:34 Potassium 3.9 MMOL/L (3.6-5.0) 12/27/18 04:34 Chloride 104 mmol/L (98-107) 12/27/18 04:34 Carbon Dioxide 29 mmol/L (22-30) 12/27/18 04:34 Anion Gap 9 (10-20) L 12/27/18 04:34 BUN 13 mg/dl (7-17) 12/27/18 04:34 Creatinine 0.7 mg/dl (0.7-1.2) 12/27/18 04:34 Est GFR ( Amer) > 60 12/27/18 04:34 Est GFR (Non-Af Amer) > 60 12/27/18 04:34 Random Glucose 72 mg/dL (65-105) 12/27/18 04:34 Lactic Acid 1.3 mmol/L (0.7-2.1) 12/25/18 23:32 Calcium 8.6 mg/dL (8.4-10.2) 12/27/18 04:34 Phosphorus 3.5 mg/dl (2.5-4.5) 12/27/18 04:34 Magnesium 2.0 MG/DL (1.6-2.3) 12/27/18 04:34 Total Bilirubin 0.7 mg/dl (0.2-1.3) 12/27/18 04:34 AST 28 U/L (14-36) 12/27/18 04:34 ALT 51 U/L (9-52) 12/27/18 04:34 Alkaline Phosphatase 109 U/L (38-126) 12/27/18 04:34 Total Protein 6.4 G/DL (6.3-8.2) 12/27/18 04:34 Albumin 3.5 g/dL (3.5-5.0) D 12/27/18 04:34 Globulin 3.0 gm/dL (2.2-3.9) 12/27/18 04:34 Albumin/Globulin Ratio 1.2 (1.0-2.1) 12/27/18 04:34 Lipase 101 U/L (23-300) 12/25/18 23:38 - Hospital Course Hospital Course: Pt was admitted for partial SBO; has hx of recurrent SBO. The pt was treated with IVF, bowel rest, and IV abx. After showing improvement, the diet was advanced accordingly. The pt refused any NGT, due to having recurring SBO's in the past that resolved spontaneously. After the diet was advanced, the pt was discharged. Discharge Exam - Head Exam Head Exam: ATRAUMATIC, NORMOCEPHALIC - Eye Exam Eye Exam: Normal appearance Pupil Exam: NORMAL ACCOMODATION - ENT Exam ENT Exam: Mucous Membranes Moist - Neck Exam Neck exam: Full Rom - Respiratory Exam Respiratory Exam: NORMAL BREATHING PATTERN - Cardiovascular Exam Cardiovascular Exam: REGULAR RHYTHM - GI/Abdominal Exam GI & Abdominal Exam: Normal Bowel Sounds - Extremities Exam Extremities exam: full ROM - Back Exam Back exam: NORMAL INSPECTION - Neurological Exam Neurological exam: Alert, CN II-XII Intact, Oriented x3 - Psychiatric Exam Psychiatric exam: Normal Affect, Normal Mood - Skin Skin Exam: Dry, Normal Color, Warm Discharge Plan - Follow Up Plan Condition: FAIR Disposition: HOME/ ROUTINE Instructions: Small Bowel Obstruction (DC) Additional Instructions: hacer salas con garrido doctor primario dentro de 1 semana Referrals: Jaya Herrera MD [Staff Provider] - William Fuentes MD [Family Provider] -
== END 2018-12-27 16:15 | disposition home or self-care (01) ==
LOC: H.ER 20:10 → INTOOBSV 12-26 02:05 → H.ERHOLD 12-26 02:05 → H.MEDSURG1 12-26 03:25
PROVIDERS: ADMIT Family Medicine; ATTEND Family Medicine
DX: K56.690 Other partial intestinal obstruction (principal); K76.89 Other specified diseases of liver; I10 Essential (primary) hypertension; K44.9 Diaphragmatic hernia without obstruction or gangrene
CPT/HCPCS: 36415; 74177; 80053; 83605; 83690; 83735; 84100; 85025; 93005; 96374; 99285; G0378; J2270; J2405; J7120; Q9967